=== PATIENT | female | born 1975 | race Caucasian/White ===

== ENCOUNTER 2018-01-28 21:34 | Emergency (ER) | payer OTHER ==
[2018-01-28] MEDS ORDERED: Ondansetron 4 MG/2 ML SDV IV ONE (21:49)
[2018-01-28] MEDS ORDERED: HYDROmorphone 0.5 MG/0.5 ML Syringe IVPUSH ONE ×3 (21:49→23:55)
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
[2018-01-28] MEDS ORDERED: LORazepam 2 MG/ML Syringe IVPUSH ONE (22:08)
[2018-01-28 22:38] LABS: ANION GAP 11.5; CHLORIDE,CL 111 mmol/L (101-111); SODIUM,NA 145 mmol/L (135-145)
== END 2018-01-29 00:15 | disposition home or self-care (01) ==
LOC: DL.ED 21:34
DX: S16.1XXA Strain of muscle, fascia and tendon at neck level, initial encounter (principal); S29.012A Strain of muscle and tendon of back wall of thorax, initial encounter; S39.012A Strain of muscle, fascia and tendon of lower back, initial encounter; V43.52XA Car driver injured in collision with other type car in traffic accident, initial encounter
CPT/HCPCS: 36415; 70450; 72125; 72128; 72131; 80053; 80305; 81003; 81025; 85025; 96374; 96375; 96376; 99285; G0480; J1170; J2405